=== PATIENT | female | born 1950 | race American Indian/Alaskan Native ===

== ENCOUNTER → 2018-11-01 15:32 | Outpatient (ROUT) | payer MEDICARE, OTHER, SELFPAY ==
[2018-11-01 16:17] LABS: INR 8.5 (0.9-1.3)
[2018-11-01 16:18] LABS: Prothrombin Time 103.4 SECONDS (10.1-12.7)
== END ==
PROVIDERS: PCP Family Medicine; Visit Provider Physician Assistant
DX: R00.0 Tachycardia, unspecified (principal)
CPT/HCPCS: 85610